=== PATIENT | female | born 1985 | race Caucasian/White ===

== ENCOUNTER 2023-12-11 06:29 | Day surgery (SDC) | payer OTHER ==
[2023-12-09 15:17] LABS: INR 0.98; PARTIAL THROMBOPLASTIN TIME 29.1 SECONDS (22.0-34.0); PROTHROMBIN TIME 10.3 SECONDS (9.0-11.5)
[2023-12-11] MEDS ORDERED: DOXYCYCLINE HYCLATE 100 MG CAPSULE PO ONE ×2 (13:15→14:30)
[2023-12-11] MEDS ORDERED: POVIDONE-IODINE 118 ML BOTT TOP ONE ×2 (13:22→14:30)
== END 2023-12-11 18:05 | disposition home or self-care (01) ==
LOC: EDBD → CIR.AMB 06:29
PROVIDERS: ATTEND Obstetrics & Gynecology
DX: O02.1 Missed abortion (principal); O72.2 Delayed and secondary postpartum hemorrhage

== ENCOUNTER 2025-05-21 11:27 | Inpatient (IN) | payer OTHER ==
[~2025-05-21] VITALS: Ht 165.1 cm; Wt 74.8 kg
[2025-05-21 12:34] VITALS: BP 106/62
[2025-05-21] MEDS ORDERED: IRON236 MG PO (13:17)
[2025-05-21] MEDS ORDERED: PRENATA CHEWAB1 EACH PO (13:17)
[2025-05-21] MEDS ORDERED: BETAMETHASONE ACETATE,SOD PHOS 30 MG/5 ML ML IM STA (13:25)
[2025-05-21] MEDS ORDERED: RINGERS SOLUTION,LACTATED 1,000 ML IV SCH (13:30)
[2025-05-21] MEDS ORDERED: MAGNESIUM SULFATE IN WATER 4 GM/100 ML PIGGYBACK IV ONE (13:30)
[2025-05-21] MEDS ORDERED: MAGNESIUM SULFATE IN WATER 500 ML IV SCH (13:30)
[2025-05-21 15:16] VITALS: BP 95/56
[2025-05-21 15:24] LABS: BASO % 0.2 % (0.1-1.2); EOS # 0.04 (0.04-0.54); EOS % 0.5 % (0.7-7.0); LYMPH # 1.03 (1.18-3.74); LYMPH % 11.9 % (19.3-53.1); MEAN PLATELET VOLUME 11.20 fl (9.4-12.4); MONO # 0.54 (0.24-0.82); MONO % 6.3 % (4.7-12.5); NEUT # 6.93 (1.56-6.13); NEUT % 80.4 % (34.0-71.1); RED CELL DISTRIBUTION WIDTH 13.4 % (11.6-14.4)
[2025-05-21 15:25] LABS: URINE APPEARANCE Clear; URINE BILIRRUBIN Negative (NEGATIVE); URINE BLOOD Negative; URINE COLOR Yellow; URINE GLUCOSE Negative (NEGATIVE); URINE KETONE 15 (NEGATIVE); URINE LEUKOCYTE Negative; URINE NITRATE Negative; URINE PROTEIN Negative (NEGATIVE); URINE UROBILINOGEN 0.2 E.U./dl
[2025-05-21 15:29] LABS: URINE BACTERIA 159.5 uL (0.0-1933); URINE EPITHELIAL CELLS 8.1 uL (0.0-38.8); URINE RBC 3.3 uL (0.0-20.8); URINE WBC 7.5 uL (0.0-23.2)
[2025-05-21 15:54] LABS: INR < 0.93; URINE CAST 0.00 uL (0.0-1.40)
[2025-05-21 20:05] VITALS: BP 96/56
[2025-05-21 23:24] VITALS: BP 97/57
[2025-05-22 03:20] VITALS: BP 90/50
[2025-05-22 07:21] VITALS: BP 98/58
[2025-05-22] MEDS ORDERED: NIFEDIPINE 60 MG TAB.SA.OSM PO SCH (09:11)
[2025-05-22] MEDS ORDERED: IRON FUM,PS/FOLIC ACID/VITC/B3 1 CAP CAPSULE PO SCH (09:12)
[2025-05-22 11:10] VITALS: BP 107/60; O2SAT 100
[2025-05-22] MEDS ORDERED: BETAMETHASONE ACETATE,SOD PHOS 30 MG/5 ML ML IM ONE (13:30)
[2025-05-22 15:11] VITALS: BP 100/64
[2025-05-22 15:44] VITALS: BP 99/59
[2025-05-22 21:05] VITALS: BP 92/61; O2SAT 97
[2025-05-23 01:22] VITALS: BP 95/57
[2025-05-23 08:30] VITALS: BP 93/53
[2025-05-23 16:00] VITALS: BP 98/60
[2025-05-24 00:18] VITALS: BP 95/53
[2025-05-24 08:00] VITALS: BP 96/60
== END 2025-05-24 08:52 | disposition home or self-care (01) | DRG 833 ==
LOC: NST 11:27 → LDR 12:50 → OB/GYN 05-22 12:51
PROVIDERS: ADMIT Obstetrics & Gynecology; ATTEND Obstetrics & Gynecology
PROC: 4A1HXCZ Monitoring of Products of Conception, Cardiac Rate, External Approach (ICD-10-PCS; principal; 2025-05-21)
DX: O60.03 Preterm labor without delivery, third trimester (principal); Z3A.34 34 weeks gestation of pregnancy

== ENCOUNTER 2025-06-11 11:55 | Inpatient (IN) | payer OTHER ==
[~2025-06-11] VITALS: Ht 162.6 cm; Wt 3.6 kg
[~2025-06-11 11:55] MED LIST: IRON236 MG PO; PRENATA CHEWAB1 EACH PO
[2025-06-29 00:31] VITALS: BP 107/67
[2025-06-29] MEDS ORDERED: RINGERS SOLUTION,LACTATED 1,000 ML IV SCH (01:15)
[2025-06-29] MEDS ORDERED: MORPHINE SULFATE 4 MG/ML CARTRIDGE IV PRN ×2 (01:15→20:30)
[2025-06-29 01:18] LABS: BASO % 0.3 % (0.1-1.2); EOS # 0.07 (0.04-0.54); EOS % 0.7 % (0.7-7.0); LYMPH # 1.47 (1.18-3.74); LYMPH % 15.7 % (19.3-53.1); MEAN PLATELET VOLUME 11.60 fl (9.4-12.4); MONO # 0.75 (0.24-0.82); MONO % 8.0 % (4.7-12.5); NEUT # 7.00 (1.56-6.13); NEUT % 74.6 % (34.0-71.1); RED CELL DISTRIBUTION WIDTH 13.6 % (11.6-14.4)
[2025-06-29 01:45] LABS: INR < 0.93
[2025-06-29 01:49] LABS: ALT/SGPT 20.0 U/L (12-78); AST/SGOT 16.0 U/L (15-37); BILIRUBIN TOTAL 0.25 mg/dL (0.3-1.2); BUN CREA RATIO 20.0 (7.0-25.0); GFR 127.03; GLOBULINA 3.4 G/DL (2.4-3.5); GLUCOSE FASTING 107.0 mg/dL (65-100); OSMOLALITY SERUM 281.0 MOSM/KG (275-295)
[2025-06-29 01:56] LABS: CREATININE SERUM 0.54 mg/dL (0.55-1.02)
[2025-06-29 03:22] VITALS: BP 117/69
[2025-06-29 06:54] VITALS: BP 120/67
[2025-06-29] MEDS ORDERED: OXYTOCIN 20 UNITS/500ML RL PIGGYBAG IV ONE (07:59)
[2025-06-29] MEDS ORDERED: OXYTOCIN 500 ML IV SCH (15:00)
[2025-06-29 15:16] VITALS: BP 112/58; O2SAT 99
[2025-06-29] MEDS ORDERED: OXYTOCIN 10 UNITS/ML VIAL ONE ×2 (19:06→19:50)
[2025-06-29] MEDS ORDERED: ERYTHROMYCIN BASE OPHT 1GM EACH TUBE OP ONE ×3 (19:06→21:00)
[2025-06-29 19:07] VITALS: BP 111/59; O2SAT 100
[2025-06-29] MEDS ORDERED: METHYLERGONOVINE MALEATE 0.2 MG/ML AMPUL ONE (19:59)
[2025-06-29] MEDS ORDERED: OXYTOCIN 1,000 ML IV SCH (20:30)
[2025-06-29] MEDS ORDERED: METHYLERGONOVINE MALEATE 0.2 MG/ML AMPUL IM ONE (21:00)
[2025-06-29] MEDS ORDERED: OXYTOCIN 10 UNITS/ML VIAL IV ONE (21:00)
[2025-06-30] MEDS ORDERED: ACETAMINOPHEN 325 MG TABLET PO SCH
[2025-06-30 02:30] VITALS: BP 110/66
[2025-06-30 08:22] VITALS: BP 99/61
[2025-06-30] MEDS ORDERED: OxyCODONE HCL 5 MG TABLET (ROXICODONE) PO PRN (09:45)
[2025-06-30 10:57] LABS: BASO % 0.2 % (0.1-1.2); EOS # 0.01 (0.04-0.54); EOS % 0.1 % (0.7-7.0); LYMPH # 0.87 (1.18-3.74); LYMPH % 5.4 % (19.3-53.1); MEAN PLATELET VOLUME 11.80 fl (9.4-12.4); MONO # 0.77 (0.24-0.82); MONO % 4.8 % (4.7-12.5); NEUT # 14.31 (1.56-6.13); NEUT % 89.1 % (34.0-71.1); RED CELL DISTRIBUTION WIDTH 14.0 % (11.6-14.4)
[2025-06-30 16:36] VITALS: BP 101/65
[2025-07-01 00:48] VITALS: BP 112/62
[2025-07-01] MEDS ORDERED: OxyCODONE HCL 5 MG TABLET (ROXICODONE) PO PRN (06:00)
[2025-07-01 08:52] VITALS: BP 103/66; O2SAT 98
== END 2025-07-01 14:24 | disposition home or self-care (01) | DRG 788 ==
LOC: LDR 06-29 01:00 → OB/GYN 06-29 11:54 → O/R 06-29 20:09 → OB/GYN 06-29 21:32 → O/R 06-30 13:18 → OB/GYN 06-30 13:19
PROVIDERS: Obstetrics & Gynecology; ADMIT Obstetrics & Gynecology; ATTEND Obstetrics & Gynecology
PROC: 4A1HXCZ Monitoring of Products of Conception, Cardiac Rate, External Approach (ICD-10-PCS; 2025-06-29)
PROC: 10D00Z1 Extraction of Products of Conception, Low, Open Approach (ICD-10-PCS; principal; 2025-06-29 19:30)
DX: O33.8 Maternal care for disproportion of other origin (principal); Z3A.40 40 weeks gestation of pregnancy; Z37.0 Single live birth